=== PATIENT | female | born 1950 | race Caucasian/White ===

== ENCOUNTER 2016-12-20 23:53 | Emergency (ER) | payer OTHER ==
[2016-12-21 00:11] VITALS: BP 122/70; PULSE 77; TEMP 98.3; BMI 36.0
--- NOTE | 2016-12-21 00:24 | PDOC ---
History of Present Illness - General Chief Complaint: Respiratory Stated Complaint: RESPIRATORY Time Seen by Provider: 12/21/16 00:15 History Source: Patient Exam Limitations: No Limitations - History of Present Illness Initial Comments: 12/21/16 00:29 66-year-old female with a history of hypertension, hyperlipidemia, hypothyroidism, asthma presents to the emergency department with her daughter complaining of intermittent cough 2 days with phlegm production and chills but denies fever, nausea/vomiting, headaches, dizziness, lightheadedness, facial pain, rhinnorhea, neck pains, back pains, chest pain, shortness of breath, abdominal discomfort, urinary symptoms: Frequency/urgency/hesitancy, hematuria. Patient was seen by her PMD yesterday and was discharged with Zithromax pack which she started today. Patient states after taking the antibiotics, she did not feel better. Timing/Duration: reports: other (x2d) Severity: reports: mild Associated Symptoms: reports: cough. denies: chest pain/soreness, dizziness, fever/chills, lightheadedness, nasal drainage, shortness of breath Past History - Past Medical History Allergies/Adverse Reactions: Allergies Allergy/AdvReac Type Severity Reaction Status Date / Time No Known Allergies Allergy Verified 12/21/16 00:10 Home Medications: Ambulatory Orders Azathioprine [Imuran] 50 mg PO DAILY 11/05/14 Dexlansoprazole [Dexilant -] 60 mg PO DAILY 11/05/14 Levothyroxine [Synthroid -] 75 mcg PO DAILY 11/05/14 Lipase/Protease/Amylase [Creon Dr 24,000 Units Capsule] 1 each PO TID 11/05/14 Losartan/Hydrochlorothiazide [Losartan-Hctz 100-25 mg Tab] 1 each PO DAILY 11/05 Rosuvastatin Calcium [Crestor] 5 mg PO DAILY 11/05/14 Gabapentin 300 mg PO BID capsule 05/14/15 Gabapentin 300 mg PO QID #120 capsule 01/17/16 Tramadol HCl [Ultram] 50 mg PO TID PRN #10 tablet MDD 3 02/20/16 HTN: Yes Hypercholesterolemia: Yes Liver Disease: Yes Thyroid Disease: Yes - Surgical History Cholecystectomy: Yes - Reproductive History Cervical CA: No Dysfunctional Uterine Bleeding: No Ectopic : No Endometrial CA: No Polycystic Ovaries: No Tubal Ligation: No - Psycho/Social/Smoking Cessation Hx Anxiety: No Suicidal Ideation: No Smoking Status: No Smoking History: Never smoked Number of Cigarettes Smoked Daily: 0 Hx Alcohol Use: No Drug/Substance Use Hx: No Substance Use Type: None Review of Systems - Review of Systems Able to Perform ROS?: Yes Comments:: 12/21/16 00:30 CONSTITUTIONAL: +chills Absent: fever, diaphoresis, generalized weakness, malaise, loss of appetite HEENT: Absent: rhinorrhea, nasal congestion, throat pain, throat swelling, difficulty swallowing, mouth swelling, ear pain, eye pain, visual Changes CARDIOVASCULAR: Absent: chest pain, loss of consciousness, palpitations, irregular heart rate, peripheral edema RESPIRATORY: +cough/yellowish phlegm production Absent: shortness of breath, dyspnea with exertion, orthopnea, wheezing, stridor, hemoptysis GASTROINTESTINAL: Absent: abdominal pain, abdominal distension, nausea, vomiting, diarrhea, constipation, melena, hematochezia GENITOURINARY: Absent: dysuria, frequency, urgency, hesitancy, hematuria, flank pain, genital pain MUSCULOSKELETAL: Absent: myalgia, arthralgia, joint swelling SKIN: Absent: rash, itching, pallor HEMATOLOGIC/IMMUNOLOGIC: Absent: easy bleeding, easy bruising, lymphadenopathy, frequent infections ENDOCRINE: Absent: unexplained weight gain, unexplained weight loss, heat intolerance, cold intolerance NEUROLOGIC: Absent: headache, focal weakness or paresthesias, dizziness, unsteady gait, seizure, mental status changes, bladder or bowel incontinence PSYCHIATRIC: Absent: anxiety, depression, suicidal or homicidal ideation, hallucinations. Is the patient limited Sierra Leonean proficient: No *Physical Exam - Vital Signs Last Vital Signs Temp Pulse Resp BP Pulse Ox 98.3 F 77 18 122/70 96 12/21/16 00:07 12/21/16 00:07 12/21/16 00:07 12/21/16 00:07 12/21/16 00:07 - Physical Exam Comments: 12/21/16 00:31 GENERAL: Well developed, well nourished. Awake and alert. No acute distress. HEENT: Normocephalic, atraumatic. PERRLA, EOMI. No conjunctival pallor. Sclera are non- icteric. Moist mucous membranes. Oropharynx is clear. NECK: Supple. Full ROM. No JVD. Carotid pulses 2+ and symmetric, without bruits. No thyromegaly. No lymphadenopathy. CARDIOVASCULAR: Regular rate and rhythm. No murmurs, rubs, or gallops. Distal pulses are 2+ and symmetric. PULMONARY: No evidence of respiratory distress. Lungs clear to auscultation bilaterally. No wheezing, rales or rhonchi. ABDOMINAL: Soft. Non-tender. Non-distended. No rebound or guarding. No organomegaly. Normoactive bowel sounds. MUSCULOSKELETAL Normal range of motion at all joints. No bony deformities or tenderness. No CVA tenderness. EXTREMITIES: No cyanosis. No clubbing. No edema. No calf tenderness. SKIN: Warm and dry. Normal capillary refill. No rashes. No jaundice. NEUROLOGICAL: Alert, awake, appropriate. Cranial nerves 2-12 intact. No deficits to light touch and temperature in face, upper extremities and lower extremities. No motor deficits in the in face, upper extremities and lower extremities. Normoreflexic in the upper and lower extremities. Normal speech. Toes are down- going bilaterally. Gait is normal without ataxia. PSYCHIATRIC: Cooperative. Good eye contact. Appropriate mood and affect. ED Treatment Course - RADIOLOGY Chest X-Ray Result: No Infiltrates *DC/Admit/Observation/Transfer Diagnosis at time of Disposition: Acute bronchitis Qualifiers: Bronchitis organism: unspecified organism Qualified Code(s): J20.9 - Acute bronchitis, unspecified - Discharge Dispostion Disposition: HOME Condition at time of disposition: Stable Admit: No - Patient Instructions Printed Discharge Instructions: DI for Acute Bronchitis Additional Instructions: Rest Increase fluids Take your antibiotics Follow up with your physician Retun to the ER for severe/persistent/worsening symptoms Print Language: CHINESE
--- NOTE | 2016-12-21 01:51 | PDOC ---
*Physical Exam - Vital Signs Last Vital Signs Temp Pulse Resp BP Pulse Ox 98.3 F 77 18 122/70 96 12/21/16 00:07 12/21/16 00:07 12/21/16 00:07 12/21/16 00:07 12/21/16 00:07 ED Treatment Course - RADIOLOGY Chest X-Ray Result: No Infiltrates Medical Decision Making - Medical Decision Making 12/21/16 01:49 This is a 66 yo F presenting to the ER with a complaint of cough x 2 days No fever. Pt started on Azithromycin but has not felt any better CXR with increased markings right base Pt seen by Midlevel Provider under my direct supervision Ancillary studies reviewed I agree with plan as outlined by Midlevel Provider *DC/Admit/Observation/Transfer Diagnosis at time of Disposition: Acute bronchitis Qualifiers: Bronchitis organism: unspecified organism Qualified Code(s): J20.9 - Acute bronchitis, unspecified - Discharge Dispostion Disposition: HOME Condition at time of disposition: Stable - Referrals - Patient Instructions Printed Discharge Instructions: DI for Acute Bronchitis Additional Instructions: Rest Increase fluids Take your antibiotics Follow up with your physician Retun to the ER for severe/persistent/worsening symptoms Print Language: JAPANESE - Post Discharge Activity
== END 2016-12-21 01:17 | disposition home or self-care (01) ==
LOC: JER 23:53
DX: J20.9 Acute bronchitis, unspecified (principal); I10 Essential (primary) hypertension; E78.00 Pure hypercholesterolemia, unspecified; E07.9 Disorder of thyroid, unspecified; K76.9 Liver disease, unspecified
CPT/HCPCS: 71020-TC; 99282-25

== ENCOUNTER 2017-12-13 11:37 | Emergency (ER) | payer OTHER ==
--- NOTE | 2017-12-13 11:53 | PDOC ---
History of Present Illness - General Chief Complaint: Pain Stated Complaint: RUQ PAIN Time Seen by Provider: 12/13/17 11:53 History Source: Patient - History of Present Illness Initial Comments: 12/13/17 13:11 Pt presents to the ED complaining of RUQ abdominal pain and flank pain that has been intermittent for a long time, but became acutely worse today. Denies fever , nausea or vomiting. Pain is made worse when she eats greasy or fatty foods. States that she awoke at 3 am with severe pain that has been resolving since taking tylenol one hour ago. Pain is localized to her RUQ and R flank and radiates from her R flank to her legs. Denies dysuria or hematuria. Past History - Past Medical History Allergies/Adverse Reactions: Allergies Allergy/AdvReac Type Severity Reaction Status Date / Time No Known Allergies Allergy Verified 12/13/17 11:48 Home Medications: Ambulatory Orders Azathioprine [Imuran] 50 mg PO DAILY 11/05/14 Losartan/Hydrochlorothiazide [Losartan-Hctz 100-25 mg Tab] 1 each PO DAILY 11/05 Rosuvastatin Calcium [Crestor] 5 mg PO DAILY 11/05/14 Gabapentin 300 mg PO TID 12/21/16 Metoclopramide HCl [Reglan] 10 mg PO TID 12/21/16 Acetaminophen [Tylenol] 650 mg PO Q6H PRN 12/13/17 Levothyroxine [Synthroid -] 50 mcg PO DAILY 12/13/17 Asthma: Yes HTN: Yes Hypercholesterolemia: Yes Liver Disease: Yes Thyroid Disease: Yes - Surgical History Cholecystectomy: Yes - Reproductive History Cervical CA: No Dysfunctional Uterine Bleeding: No Ectopic : No Endometrial CA: No Polycystic Ovaries: No Tubal Ligation: No - Suicide/Smoking/Psychosocial Hx Smoking Status: No Smoking History: Never smoked Number of Cigarettes Smoked Daily: 0 Hx Alcohol Use: No Drug/Substance Use Hx: No Substance Use Type: None Review of Systems - Review of Systems Able to Perform ROS?: Yes Is the patient limited Faroese proficient: Yes Constitutional: No: Symptoms Reported, See HPI, Chills, Diaphoresis, Fever, Loss of Appetite, Malaise, Night Sweats, Weakness, Weight Stable, Unintentional Wgt. Loss, Unexplained wgt Loss, Other HEENTM: No: Symptoms Reported, See HPI, Eye Pain, Blurred Vision, Tearing, Recent change in vision, Double Vision, Cataracts, Ear Pain, Ocular Prothesis, Ear Discharge, Nose Pain, Nose Congestion, Tinnitus, Nose Bleeding, Hearing Loss , Throat Pain, Throat Swelling, Mouth Pain, Dental Problems, Difficulty Swallowing, Mouth Swelling, Other Respiratory: No: Symptoms reported, See HPI, Cough, Orthopnea, Shortness of Breath, SOB with Exertion, SOB at Rest, Stridor, Wheezing, Productive cough, Hemoptysis, Other Cardiac (ROS): No: Symptoms Reported, See HPI, Chest Pain, Edema, Irregular Heart Rate, Lightheadedness, Palpitations, Syncope, Chest Tightness, Other ABD/GI: No: Symptoms Reported, See HPI, Abdominal Distended, Abd. Pain w/ defecation (+ R UQ abdominal pain and R flank pain), Blood Streaked Bowels, Constipated, Diarrhea, Difficulty Swallowing, Nausea, Poor Appetite, Poor Fluid Intake, Rectal Bleeding, Vomiting, Indigestion, Abdominal cramping, Tarry Stools , Other : Yes: Flank Pain. No: Symptoms Reported, See HPI, Burning, Dysuria, Discharge, Frequency, Hematuria, Incontinence, Pain, Urgency, Lesions Musculoskeletal: No: Symptoms Reported, See HPI, Back Pain, Gout, Joint Pain, Joint Swelling, Muscle Pain, Muscle Weakness, Neck Pain, Joint Stiffness, Other Integumentary: No: Symptoms Reported, See HPI, Bruising, Change in Color, Change in Hair/Nails, Dryness, Erythema, Flushing, Lesions, Lumps, Pallor, Pruritus, Rash, Sweating, Other Neurological: No: Symptoms reported, See HPI, Headache, Numbness, Paresthesia, Pre-Existing Deficit, Seizure, Tingling, Tremors, Weakness, Unsteady Gait, Ataxia, Dizziness, Other Psychiatric: No: Anxiety, Depression, Frequent Crying, Stressors, Sleep Pattern Change, Emotional Problems, Mood Swings, Change in Appetite, Other *Physical Exam - Physical Exam General Appearance: Yes: Nourished, Appropriately Dressed. No: Apparent Distress, Disheveled, Mild Distress, Moderate Distress, Severe Distress, Alcohol on Breath, Intoxicated, Cachetic, Obese, Thin, Other HEENT: positive: Normal ENT Inspection Neck: positive: Supple Respiratory/Chest: positive: Lungs Clear, Normal Breath Sounds. negative: Chest Tender, Respiratory Distress, Accessory Muscle Use, Labored Respiration, Rapid RR, Decreased Breath Sounds, Paradoxal Breathing, Crackles, Rales, Rhonchi , Stridor, Wheezing, Hyperresonant, Dullness, Plerual Rub, Other Cardiovascular: positive: Regular Rhythm, Regular Rate, S1, S2 Gastrointestinal/Abdominal: positive: Flat, Soft. negative: Normal Bowel Sounds , Tender, Organomegaly, Pulsatile Mass (non tender to deep palpation), Increased Bowel Sounds, Decreased BS, Protuberent, Distended, Guarding, Rebound , Tenderness, Hernia, Mass, Hepatomegaly, Spleenomegaly, Other Musculoskeletal: positive: CVA Tenderness, CVA Tenderness (R) (very mild CVA tenderness) Integumentary: positive: Normal Color, Dry, Warm Neurologic: positive: Fully Oriented, Normal Mood/Affect ED Treatment Course - LABORATORY CBC & Chemistry Diagram: 12/13/17 12:30 12/13/17 12:30 Medical Decision Making - Medical Decision Making 12/13/17 13:23 Pt presents to the ED complaining of R flank pain. History of cholecystectomy. Abdomen is non tender. differential included biliary disease, nephrolithiasis , less likely pacreatitis. LAbs are within normal limits. CT shows renal stones. Pain is controlled and patinet has no signs of infection. Will discharge home with follow up with PMD. *DC/Admit/Observation/Transfer Diagnosis at time of Disposition: Nephrolithiasis - Discharge Dispostion Disposition: HOME Condition at time of disposition: Good Decision to Admit order: No - Referrals Referrals: Logan Huerta MD [Primary Care Provider] - - Patient Instructions Printed Discharge Instructions: DI for Kidney Stones Additional Instructions: return to the ED for severe pain, nausea and vomiting, pain with fever, burning with urination, other new or worsening symptoms. Make sure that you call your doctor for follow up tomorrow. - Post Discharge Activity
[2017-12-13] MEDS ORDERED: KETOROLAC TROMETHAMINE 30 MG/1 ML VIAL IVPUSH ONE (11:54)
[2017-12-13 11:57] VITALS: BP 118/50; PULSE 66; TEMP 98.7; BMI 34.9
[2017-12-13] MEDS ORDERED: KETOROLAC TROMETHAMINE 30 MG/1 ML VIAL ONE (11:58)
[2017-12-13 12:36] LABS: URINE APPEARANCE Clear; URINE BILIRUBIN Negative (NEGATIVE); URINE GLUCOSE (UA) Negative (NEGATIVE); URINE KETONE Negative (NEGATIVE); URINE NITRITE Negative (NEGATIVE); URINE PROTEIN Negative (NEGATIVE); URINE UROBILINOGEN 0.2 (0.2-1.0)
[2017-12-13 12:55] LABS: BASO % 0.6 % (0-2.0); EOS % 5.9 % (0-4.5); HEMOGLOBIN 11.9 GM/dl (10.7-15.3); LYMPH % 31.7 % (8-40); MCH 31.3 pg (25.7-33.7); MCHC 33.9 g/dl (32.0-36.0); MEAN CELL VOLUME 92.5 fl (80-96); MEAN PLT VOLUME 8.6 fl (7.5-11.1); MONO % 12.8 % (3.8-10.2); PLATELET COUNT 268 K/MM3 (134-434); RBC 3.79 M/mm3 (3.60-5.2); WHITE BLOOD COUNT 5.6 K/mm3 (4.0-10.8)
[2017-12-13 13:03] LABS: URINE BLOOD Trace-intact (NEGATIVE); URINE COLOR YELLOW; URINE LEUK ESTERASE 1+ (NEGATIVE)
[2017-12-13 13:04] LABS: ALBUMIN 3.7 g/dl (3.5-5.0); ALK PHOS 58 U/L (32-92); ANION GAP 8 (8-16); BLOOD UREA NITROGEN 21 mg/dl (7-18); CALCIUM 9.7 mg/dl (8.4-10.2); CHLORIDE 104 mmol/L (98-107); CO2 25 mmol/L (22-28); GLUCOSE,RANDOM 110 mg/dl (74-106); POTASSIUM 4.3 mmol/L (3.5-5.1); SGOT/AST 22 U/L (10-42); SGPT/ALT 13 U/L (10-40); SODIUM 137 mmol/L (136-145)
[2017-12-13 13:06] LABS: BILIRUBIN,TOTAL < 0.5 mg/dl (0.2-1.0)
[2017-12-13 13:16] LABS: EPI CELLS FEW /HPF; URINE BACTERIA FEW /hpf (NEGATIVE); URINE RBC 0-2 /hpf (0-3); URINE WBC 0-2 (0-5)
== END 2017-12-13 13:36 | disposition home or self-care (01) ==
LOC: FER 11:37
DX: N20.0 Calculus of kidney (principal); J45.909 Unspecified asthma, uncomplicated; I10 Essential (primary) hypertension; E78.00 Pure hypercholesterolemia, unspecified; E07.9 Disorder of thyroid, unspecified; K76.9 Liver disease, unspecified
CPT/HCPCS: 36415; 74176-TC; 80053; 81003; 81015; 85025; 99283-25

== ENCOUNTER 2018-04-21 10:36 | Emergency (ER) | payer OTHER ==
[2018-04-21 10:47] VITALS: BMI 31.9
--- NOTE | 2018-04-21 11:43 | PDOC ---
*Physical Exam - Vital Signs Last Vital Signs Temp Pulse Resp BP Pulse Ox 98.6 F 75 16 130/57 L 98 04/21/18 10:45 04/21/18 10:45 04/21/18 10:45 04/21/18 10:45 04/21/18 10:45 - Physical Exam Comments: 04/21/18 11:42 The patient was examined by [SRAVANTHI Correa] under my direct supervision. I personally evaluated the patient. I concur with the above findings and the plan of care. *DC/Admit/Observation/Transfer - Referrals Referrals: Logan Huerta MD [Primary Care Provider] - - Patient Instructions - Post Discharge Activity
[2018-04-21] MEDS ORDERED: SODIUM CHLORIDE 1,000 ML IV STA (11:45)
[2018-04-21] MEDS ORDERED: KETOROLAC TROMETHAMINE 30 MG/1 ML VIAL IVPUSH ONE (11:45)
[2018-04-21] MEDS ORDERED: KETOROLAC TROMETHAMINE 30 MG/1 ML VIAL ONE (11:54)
--- NOTE | 2018-04-21 12:05 | PDOC ---
History of Present Illness - General Chief Complaint: Pain, Acute Stated Complaint: PAIN, ACUTE Time Seen by Provider: 04/21/18 11:41 History Source: Patient - History of Present Illness Timing/Duration: reports: getting worse Quality: reports: severe Abdominal Pain Onset Location: reports: other (R sided abd) Pain Radiation: reports: other (R gluteus and R thigh) Past History - Past Medical History Allergies/Adverse Reactions: Allergies Allergy/AdvReac Type Severity Reaction Status Date / Time shellfish derived Allergy Verified 04/21/18 10:47 Home Medications: Ambulatory Orders Azathioprine [Imuran] 50 mg PO BID 11/05/14 Losartan/Hydrochlorothiazide [Losartan-Hctz 100-25 mg Tab] 1 each PO DAILY 11/05 Rosuvastatin Calcium [Crestor] 5 mg PO DAILY 11/05/14 Gabapentin 300 mg PO QID 12/21/16 Levothyroxine [Synthroid -] 50 mcg PO DAILY 12/13/17 Ibuprofen [Motrin -] 2 tab PO Q6H #30 tablet 04/21/18 Oxybutynin Chloride [Oxybutynin Chloride ER] 10 mg PO DAILY 04/21/18 Tramadol HCl 50 mg PO Q6H #20 tablet MDD 200 mg 04/21/18 Asthma: Yes COPD: No GI Disorders: Yes Disorders: Yes HTN: Yes Hypercholesterolemia: Yes Kidney Stones: Yes Liver Disease: Yes Thyroid Disease: Yes - Surgical History Cholecystectomy: Yes - Reproductive History Cervical CA: No Dysfunctional Uterine Bleeding: No Ectopic : No Endometrial CA: No Polycystic Ovaries: No Tubal Ligation: No - Immunization History Immunization Up to Date: Yes - Suicide/Smoking/Psychosocial Hx Smoking Status: No Smoking History: Never smoked Have you smoked in the past 12 months: No Number of Cigarettes Smoked Daily: 0 Information on smoking cessation initiated: No Hx Alcohol Use: No Drug/Substance Use Hx: No Substance Use Type: None Review of Systems - Review of Systems Constitutional: No: Chills, Fever Cardiac (ROS): No: Chest Pain ABD/GI: No: Blood Streaked Bowels, Constipated, Diarrhea, Nausea, Rectal Bleeding, Vomiting : Yes: Dysuria, Flank Pain. No: Hematuria *Physical Exam - Vital Signs Last Vital Signs Temp Pulse Resp BP Pulse Ox 98.6 F 75 16 130/57 L 98 04/21/18 10:45 04/21/18 10:45 04/21/18 10:45 04/21/18 10:45 04/21/18 10:45 - Physical Exam General Appearance: Yes: Appropriately Dressed. No: Apparent Distress HEENT: positive: Normal Voice Neck: positive: Supple Respiratory/Chest: negative: Respiratory Distress Gastrointestinal/Abdominal: positive: Tender (minimal ttp to R side of abd diffusely, NT over mcburneys, no CVAT) Musculoskeletal: negative: CVA Tenderness Integumentary: positive: Dry, Warm Neurologic: positive: Fully Oriented, Alert, Normal Mood/Affect ED Treatment Course - LABORATORY CBC & Chemistry Diagram: 04/21/18 12:00 04/21/18 12:00 Medical Decision Making - Medical Decision Making 04/21/18 12:00 67 F, s/p [place], renal stones, fibromyalgia, here w/ pain to entire R side of abd including R flank, radiating into the right gluteus and right thigh for 2 weeks, intermittent and worsened yesterday. Also complaining of urinary frequency for 3 days. No dysuria, hematuria, nausea, vomiting, fever or chills. Unsure if current pain feels like her kidney stones. Of note, patient was seen in ED several months ago for RUQ pain . CT which showed 2 tiny stones in the proximal right ureter. No surgeries for stones in the past per patient See exam R/o renal colic vs uti/pyelo -pain control -IVF -labs -ua 04/21/18 12:06 04/21/18 14:46 CT read as mild right renal hydro and proximal hydroureter with possible 2.7 mm distal right ureteral stone vs calcification. Also possible thickening of the terminal ileum. Labs and UA unremarkable. Patient reports improvement with toradol. Will dc with pain control. Pt reports she has appointment with urologist in 2 days, will follow up. Reasons to return discussed with patient and urology follow-up *DC/Admit/Observation/Transfer Diagnosis at time of Disposition: Renal colic on right side - Discharge Dispostion Disposition: HOME Condition at time of disposition: Improved - Prescriptions Prescriptions: Ibuprofen [Motrin -] 2 tab PO Q6H #30 tablet Tramadol HCl 50 mg PO Q6H #20 tablet MDD 200 mg - Referrals Referrals: Logan Huerta MD [Primary Care Provider] - - Patient Instructions Printed Discharge Instructions: Kidney Stones -- Adult Additional Instructions: Gamble tomografa computarizada muestra 2,7 mm en gamble urter distal que est cerca de gamble vejiga. Esta denisse debera poder pasar por s corazon. Tambin hay zayra leve inflamacin de gamble rin en gurmeet lado. Gamble orina no mostr evidencia de infeccin, por lo que no se iniciaron los antibiticos. [place] los analgsicos segn las indicaciones y tome muchos lquidos en casa. Por favor guillermo un seguimiento con gamble urlogo en 2 mariscal fely ya est programado. Si los sntomas empeoran, vuelva a ER - Post Discharge Activity
[2018-04-21 12:19] LABS: EOS % 3.3 % (0-4.5); HEMATOCRIT 37.6 % (32.4-45.2); HEMOGLOBIN 12.2 GM/dL (10.7-15.3); LYMPH % 28.9 % (8-40); MCH 30.2 pg (25.7-33.7); MCHC 32.4 g/dl (32.0-36.0); MEAN CELL VOLUME 93.1 fl (80-96); MEAN PLT VOLUME 9.8 fl (7.5-11.1); MONO % 11.2 % (3.8-10.2); NEUT % 55.6 % (42.8-82.8); PLATELET COUNT 249 K/MM3 (134-434); RBC 4.03 M/mm3 (3.60-5.2); RDW 14.5 % (11.6-15.6); WHITE BLOOD COUNT 6.2 K/mm3 (4.0-10.0)
[2018-04-21 12:22] LABS: URINE APPEARANCE CLEAR; URINE BILIRUBIN NEGATIVE (<2.0 mg/dL); URINE COLOR LTYELLOW; URINE GLUCOSE (UA) NEGATIVE (NEGATIVE); URINE KETONE NEGATIVE (NEGATIVE); URINE LEUK ESTERASE TRACE (NEGATIVE); URINE NITRITE NEGATIVE (NEGATIVE); URINE PROTEIN NEGATIVE (NEGATIVE); URINE UROBILINOGEN NEGATIVE mg/dL (0.2-1.0)
[2018-04-21 12:33] LABS: ALBUMIN 3.8 g/dl (3.4-5.0); ALK PHOS 76 U/L (45-117); ANION GAP 6 MMOL/L (8-16); BILIRUBIN,TOTAL 0.4 mg/dL (0.2-1); BLOOD UREA NITROGEN 23 mg/dL (7-18); CALCIUM 9.8 mg/dL (8.5-10.1); CHLORIDE 105 mmol/L (98-107); CO2 28 mmol/L (21-32); GLUCOSE,RANDOM 99 mg/dL (74-106); LIPASE 140 U/L (73-393); POTASSIUM 4.3 mmol/L (3.5-5.1); SGOT/AST 24 U/L (15-37); SGPT/ALT 17 U/L (13-61); SODIUM 139 mmol/L (136-145)
[2018-04-21 12:38] LABS: EPI CELLS RARE /HPF (FEW); URINE HYALINE CAST 4 /lpf; URINE MUCUS RARE
[2018-04-21] MEDS ORDERED: traMADol HCL 50 MG TABLET PO ONE (15:07)
[2018-04-21] MEDS ORDERED: traMADol HCL 50 MG TABLET ONE (15:14)
[2018-04-21 15:21] VITALS: BP 123/71; PULSE 68; TEMP 98.3
== END 2018-04-21 15:21 | disposition home or self-care (01) ==
LOC: JER 10:36
PROC: 3E0337Z Introduction of Electrolytic and Water Balance Substance into Peripheral Vein, Percutaneous Approach (ICD-10-PCS; principal; 2018-04-21)
DX: N23 Unspecified renal colic (principal); M79.7 Fibromyalgia; J45.909 Unspecified asthma, uncomplicated; I10 Essential (primary) hypertension; E78.00 Pure hypercholesterolemia, unspecified; E07.9 Disorder of thyroid, unspecified
CPT/HCPCS: 36415; 74176-TC; 80053; 81003; 81015; 83690; 85025; 87086; 96361; 99284-25; J7030

== ENCOUNTER 2018-12-02 14:06 | Day surgery (SDC) | payer OTHER | END 2018-12-02 17:00 | disposition home or self-care (01) | LOC: JASU-SURG 14:06 ==

== ENCOUNTER 2022-06-13 13:50 | Emergency (ER) | payer OTHER ==
[2022-06-13] MEDS ORDERED: IBUPROFEN 600 MG TABLET (FP) PO ONE ×2 (14:13→14:25)
[2022-06-13 14:23] VITALS: BP 138/61; PULSE 61; RESP 18; TEMP 98.4; BMI 29.7
== END 2022-06-13 15:31 | disposition home or self-care (01) ==
LOC: FER 13:50
DX: R51.9 Headache, unspecified (principal); M54.50 Low back pain, unspecified; M25.511 Pain in right shoulder; W01.0XXA Fall on same level from slipping, tripping and stumbling without subsequent striking against object, initial encounter
CPT/HCPCS: 73030-TC-RT-FY; 99283-25

== ENCOUNTER 2023-06-19 04:22 | Day surgery (SDC) | payer OTHER ==
[2023-06-17 15:49] VITALS: BMI 31.6
[2023-06-19 07:08] VITALS: RESP 20
[2023-06-19] MEDS ORDERED: LIDOCAINE HCL/PF 1% SDV 5ML VIAL ONE (07:32)
[2023-06-19] MEDS ORDERED: DEXAMETHASONE SOD PHOSPHATE 10 MG/1 ML VIAL ONE (07:32)
[2023-06-19] MEDS ORDERED: IOHEXOL 180 MG/1 ML ML IJ ONE ×2 (07:40)
[2023-06-19] MEDS ORDERED: DEXAMETHASONE SOD PHOSPHATE 10 MG/1 ML VIAL IVPUSH ONE (07:42)
[2023-06-19] MEDS ORDERED: LIDOCAINE 1% P/F 10 MG/ML VIAL PNB ONE ×2 (07:43)
[2023-06-19 09:51] VITALS: BP 141/64; PULSE 61; TEMP 98.6
[2023-06-19] MEDS ORDERED: ACETAMINOPHEN 500 MG TABLET (FP) PO PRN (10:13)
== END 2023-06-19 11:15 | disposition home or self-care (01) ==
LOC: JASU-SURG 04:22
PROVIDERS: ATTEND Pain Medicine Pain Medicine
PROC: 3E0R3BZ Introduction of Anesthetic Agent into Spinal Canal, Percutaneous Approach (ICD-10-PCS; 2023-06-19)
PROC: 3E0R33Z Introduction of Anti-inflammatory into Spinal Canal, Percutaneous Approach (ICD-10-PCS; principal; 2023-06-19 08:30)
DX: M48.061 Spinal stenosis, lumbar region without neurogenic claudication (principal); M54.16 Radiculopathy, lumbar region
CPT/HCPCS: 76000-TC-FY; J1100

== ENCOUNTER 2023-07-01 10:01 | Observation (INO) | payer OTHER ==
[2023-07-01] MEDS ORDERED: ONDANSETRON 4 MG/2 ML VIAL IVPUSH ONE (10:20)
[2023-07-01] MEDS ORDERED: ONDANSETRON 4 MG/2 ML VIAL ONE (10:27)
[2023-07-01] MEDS ORDERED: SODIUM CHLORIDE 0.9% 500 ML INFUS.BAG IV ONE ×2 (10:30→11:34)
[2023-07-01 10:59] LABS: HEMATOCRIT 39.1 % (32.4-45.2); HEMOGLOBIN 12.4 G/dL (10.7-15.3); INR 1.13 (0.83-1.09); MCH 30.2 pg (25.7-33.7); MCHC 31.6 g/dl (32.0-36.0); MEAN CELL VOLUME 95.5 fl (80-96); MEAN PLT VOLUME 8.9 fl (7.5-11.1); PLATELET COUNT 271.3 10^3/uL (134-434); PROTHROMBIN TIME (PATIENT) 13.1 SEC (9.7-13.0); RBC 4.09 10^6/uL (3.60-5.2); RDW 14.8 % (11.6-15.6)
[2023-07-01 11:02] LABS: ACTIVATED PTT 33.9 SECONDS (25.2-36.5)
[2023-07-01 11:10] LABS: ALBUMIN 4.3 g/dl (3.4-5.0); BILIRUBIN,TOTAL 0.5 mg/dl (0.2-1); CALCIUM 10.4 mg/dl (8.5-10.1); CREATININE 0.9 mg/dl (0.6-1.3); POTASSIUM 4.4 mmol/L (3.5-5.1); TOT PROT 7.5 g/dl (6.4-8.2)
[2023-07-01 11:20] LABS: PLATELET ESTIMATE ADEQUATE
[2023-07-01 11:25] LABS: EPITHELIAL CELLS 0-5 /hpf
[2023-07-01] MEDS ORDERED: DEXTROSE 5%-0.45% SALINE 1,000 ML IV SCH (14:00)
[2023-07-01] MEDS ORDERED: METOCLOPRAMIDE HCL INJECTION 10 MG/2 ML VIAL IVPUSH PRN (20:51)
[2023-07-01] MEDS ORDERED: ALBUTEROL SO4 HFA INHALER IH PRN (21:02)
[2023-07-01] MEDS: BUDESONIDE/FORMOTEROL FUMARATE 80-4.5 MCG (10.3 GM INHALER) IH SCH (22:03)
[2023-07-01] MEDS: GABAPENTIN 300 MG CAPSULE PO SCH (22:03)
[2023-07-01] MEDS: PANTOPRAZOLE SODIUM 40 MG VIAL IVPUSH SCH (22:12)
[2023-07-02 00:22] VITALS: BMI 30.7
[2023-07-02] MEDS ORDERED: LEVOTHYROXINE NA 50 MCG TABLET (FP) PO SCH (07:00)
[2023-07-02 09:05] LABS: CALCIUM 9.9 mg/dl (8.5-10.1); CREATININE 0.9 mg/dl (0.6-1.3); POTASSIUM 4.8 mmol/L (3.5-5.1)
[2023-07-02] MEDS: METOCLOPRAMIDE HCL INJECTION 10 MG/2 ML VIAL IVPB SCH ×2 (09:14→16:08)
[2023-07-02] MEDS: PANTOPRAZOLE SODIUM 40 MG VIAL IVPUSH SCH (09:14)
[2023-07-02] MEDS: GABAPENTIN 300 MG CAPSULE PO SCH ×2 (09:14→16:08)
[2023-07-02 09:22] LABS: EOS % 5.7 % (0-4.5); HEMATOCRIT 33.8 % (32.4-45.2); LYMPH % 28.8 % (8-40); MCH 30.8 pg (25.7-33.7); MCHC 32.6 g/dl (32.0-36.0); MEAN CELL VOLUME 94.4 fl (80-96); MEAN PLT VOLUME 8.7 fl (7.5-11.1); MONO % 10.7 % (3.8-10.2); NEUT % 53.8 % (42.8-82.8); PLATELET COUNT 243 10^3/uL (134-434); RBC 3.58 M/mm3 (3.60-5.2); RDW 15.1 % (11.6-15.6); WHITE BLOOD COUNT 6.6 K/mm3 (4.0-10.0)
[2023-07-02] MEDS: BUDESONIDE/FORMOTEROL FUMARATE 80-4.5 MCG (10.3 GM INHALER) IH SCH (09:23)
[2023-07-02] MEDS ORDERED: azaTHIOprine 50 MG TABLET PO SCH (10:00)
[2023-07-02] MEDS ORDERED: ROSUVASTATIN CA 5 MG TABLET PO SCH (10:00)
[2023-07-02] MEDS ORDERED: LOSARTAN POTASSIUM 50 MG TABLET PO SCH (10:00)
[2023-07-02] MEDS ORDERED: CEFTRIAXONE 1 GM in DEXTROSE 5%-WATER - 50 ML IVPB SCH (10:30)
[2023-07-02 16:19] VITALS: PULSE 54; RESP 17
[2023-07-02 19:55] VITALS: BP 115/50; TEMP 98.1
== END 2023-07-02 20:04 | disposition home or self-care (01) ==
LOC: FER 10:01 → FM/S 16:41
PROC: 3E03329 Introduction of Other Anti-infective into Peripheral Vein, Percutaneous Approach (ICD-10-PCS; principal; 2023-07-01)
PROC: 3E0337Z Introduction of Electrolytic and Water Balance Substance into Peripheral Vein, Percutaneous Approach (ICD-10-PCS; 2023-07-01)
PROC: 3E033GC Introduction of Other Therapeutic Substance into Peripheral Vein, Percutaneous Approach (ICD-10-PCS; 2023-07-01)
DX: E86.0 Dehydration (principal); R11.10 Vomiting, unspecified; R42 Dizziness and giddiness; R73.03 Prediabetes; J44.9 Chronic obstructive pulmonary disease, unspecified; I10 Essential (primary) hypertension; E78.5 Hyperlipidemia, unspecified; R00.2 Palpitations; R01.1 Cardiac murmur, unspecified; K76.0 Fatty (change of) liver, not elsewhere classified; E03.9 Hypothyroidism, unspecified; D64.9 Anemia, unspecified
CPT/HCPCS: 0241U-QW; 36415; 70450-TC; 74176-TC; 80048; 80053; 81003; 81015; 83605; 83690; 83880; 84484; 85025; 85027; 85610; 85730; 86140; 87086; 93005; 96361; 96365; 96375; 99285-25; G0378